=== PATIENT | male | born 1995 | race Caucasian/White ===

== ENCOUNTER 2021-07-22 01:21 | Emergency (ER) | payer MEDICAID ==
[~2021-07-22] VITALS: Ht 180.3 cm; Wt 83.9 kg
[2021-07-22 01:30] VITALS: BP_SYST 143
[2021-07-22] MEDS ORDERED: LIDOCAINE 1%, 20 ML MDV 20 ML ONE (01:40)
[2021-07-22] MEDS ORDERED: LIDOCAINE 1% 10 MG/ML, 20 ML MDV INJ ONE (01:45)
[2021-07-22] MEDS ORDERED: BACITRACIN 1 GM OINT TP ONE (01:45)
[2021-07-22 02:38] VITALS: BP_SYST 143
== END 2021-07-22 02:40 | disposition home or self-care (01) ==
LOC: SED 01:21
DX: S61.214S Laceration without foreign body of right ring finger without damage to nail, sequela (principal); S60.042A Contusion of left ring finger without damage to nail, initial encounter; X58.XXXA Exposure to other specified factors, initial encounter; Y93.54 Activity, bowling; Y92.89 Other specified places as the place of occurrence of the external cause; Y99.8 Other external cause status
CPT/HCPCS: 12001; 73140; 99283; J2001; 96372

== ENCOUNTER 2021-07-31 08:37 | Emergency (ER) | payer MEDICAID ==
[~2021-07-31] VITALS: Ht 180.3 cm; Wt 83.9 kg
[2021-07-31 08:45] VITALS: BP_SYST 123
[2021-07-31 09:19] VITALS: BP_SYST 123
== END 2021-07-31 09:19 | disposition home or self-care (01) ==
LOC: SED 08:37
DX: S61.215A Laceration without foreign body of left ring finger without damage to nail, initial encounter (principal); R03.0 Elevated blood-pressure reading, without diagnosis of hypertension; Z48.02 Encounter for removal of sutures
CPT/HCPCS: 99283